=== PATIENT | male | born 1970 | race Caucasian/White ===

== ENCOUNTER 2019-05-16 13:00 | Emergency (ER) | payer MEDICAID ==
[~2019-05-16] VITALS: Ht 180.3 cm; Wt 76.0 kg
--- NOTE | 2019-05-16 13:48 | NUR ---
FROM LOBBY TO ROOM AT THIS TIME
[2019-05-16 14:23] VITALS: BP 111/56
--- NOTE | 2019-05-16 14:29 | NUR ---
assumed care of pt. Pt ambulatory to ED c/o wound to R thigh x2 weeks. VSS. open red ulceration w/ red borders. pt c/o chills. afebrile. [address] Powers in to see pt. Plan for dc and dress wound.
== END 2019-05-16 14:49 | disposition home or self-care (01) ==
LOC: ED 14:40
DX: L97.111 Non-pressure chronic ulcer of right thigh limited to breakdown of skin (principal)
CPT/HCPCS: 99283

== ENCOUNTER 2020-02-14 15:00 | Emergency (ER) | payer MEDICAID ==
[~2020-02-14] VITALS: Ht 180.3 cm; Wt 81.0 kg
[2020-02-14 15:56] LABS: BASOPHILS # (AUTO) 0.04 x10^3/uL (0-0.1); BASOPHILS % (AUTO) 1 % (0-1); EOSINOPHILS # (AUTO) 0.13 x10^3/uL (0-0.4); EOSINOPHILS % (AUTO) 2 % (1-7); LYMPHOCYTES # (AUTO) 1.81 x10^3/uL (1-3.4); LYMPHOCYTES % (AUTO) 22 % (22-44); MD NO; MEAN CORPUSCULAR HGB CONC 32.7 g/dL (33.2-36.2); MEAN CORPUSCULAR VOLUME 94.8 fL (81-97); MEAN PLATELET VOLUME 7.8 fL (7.4-10.4); MONOCYTES # (AUTO) 0.59 x10^3/uL (0.2-0.8); MONOCYTES % (AUTO) 7 % (2-9); NEUTROPHILS # (AUTO) 5.76 x10^3/uL (1.8-6.8); NEUTROPHILS % (AUTO) 69 % (42-75); PLATELET COUNT 266 x10^3/uL (130-400); RED BLOOD COUNT 4.48 x10^6/uL (4.38-5.82); RED CELL DISTRIBUTION WIDTH 13.5 % (9.4-14.8)
[2020-02-14 16:00] LABS: CHLORIDE 106 mmol/L (98-107)
[2020-02-14] MEDS ORDERED: LIDOCAINE-MPF 1%, 5ML INFIL ONE (16:00)
[2020-02-14] MEDS ORDERED: LIDOCAINE-MPF 1%, 5ML ONE (16:17)
--- NOTE | 2020-02-14 16:20 | NUR ---
Pt resting, suture set up at bedside. Pt without complaint.
[2020-02-14 16:34] LABS: ALBUMIN 3.8 g/dL (3.4-5.0); ANION GAP 6 mmol/L (5-15); CALCIUM 9.3 mg/dL (8.5-10.1); CREATININE 0.79 mg/dL (0.7-1.3); TROPONIN I < 0.015 ng/mL (0.000-0.045)
--- NOTE | 2020-02-14 17:11 | NUR ---
Pt resting, no needs at this time. Updated on POC. Sutures complete.
--- NOTE | 2020-02-14 17:30 | NUR ---
Note wanda in ED - 02/14/20 at 1733 by HUNG Pt resting with family at bedside. Updated on POC of care, to be admitted. Bilateral pedal pulses heard by doppler, ERP aware.
== END 2020-02-14 17:35 | disposition home or self-care (01) ==
LOC: ED 17:00
DX: S01.81XA Laceration without foreign body of other part of head, initial encounter (principal); R55 Syncope and collapse; R00.0 Tachycardia, unspecified; F17.210 Nicotine dependence, cigarettes, uncomplicated; X58.XXXA Exposure to other specified factors, initial encounter; Y93.89 Activity, other specified; Y92.89 Other specified places as the place of occurrence of the external cause; Y99.8 Other external cause status
CPT/HCPCS: 12051; 36415; 70450; 80048; 82040; 84484; 85025; 93005; 99285; 99406